=== PATIENT | female | born 1955 | race Caucasian/White ===

== ENCOUNTER 2021-05-04 13:03 | Outpatient (CLI) | payer OTHER | END 2021-05-04 13:04 | disposition home or self-care (01) | LOC: CSHMAMMO 13:03 | PROVIDERS: ATTEND Internal Medicine Hematology & Oncology | DX: Z12.31 Encounter for screening mammogram for malignant neoplasm of breast (principal); Z80.3 Family history of malignant neoplasm of breast; Z85.3 Personal history of malignant neoplasm of breast | CPT/HCPCS: 77063; 77067 ==

== ENCOUNTER 2023-01-09 13:03 | Outpatient (CLI) | payer MEDICARE, OTHER | END 2023-01-09 13:04 | disposition home or self-care (01) | LOC: CSHMAMMO 13:03 | PROVIDERS: ATTEND Specialist | DX: Z08 Encounter for follow-up examination after completed treatment for malignant neoplasm (principal); Z85.3 Personal history of malignant neoplasm of breast | CPT/HCPCS: 77066; G0279 ==

== ENCOUNTER 2024-02-22 14:51 | Outpatient (CLI) | payer MEDICARE, OTHER | END 2024-02-22 14:52 | disposition home or self-care (01) | LOC: CSHMAMMO 14:51 | PROVIDERS: ATTEND Family Medicine | DX: Z12.31 Encounter for screening mammogram for malignant neoplasm of breast (principal); Z80.3 Family history of malignant neoplasm of breast; Z85.3 Personal history of malignant neoplasm of breast; Z91.89 Other specified personal risk factors, not elsewhere classified; Z98.890 Other specified postprocedural states | CPT/HCPCS: 77063; 77067 ==

== ENCOUNTER 2024-03-11 13:11 | Outpatient (CLI) | payer MEDICARE, OTHER ==
[~2024-03-11 13:11] MED LIST: Magnevist 469MG/ML 20 ML VIAL ONE
== END 2024-03-11 13:12 | disposition home or self-care (01) ==
LOC: CSHMRI 13:11
PROVIDERS: ATTEND Allergy & Immunology
DX: G43.909 Migraine, unspecified, not intractable, without status migrainosus (principal); R93.0 Abnormal findings on diagnostic imaging of skull and head, not elsewhere classified
CPT/HCPCS: 36415; 70553; 76376; 82565

== ENCOUNTER 2025-03-06 12:47 | Outpatient (CLI) | payer MEDICARE, OTHER | END 2025-03-06 12:48 | disposition home or self-care (01) | LOC: CSHMAMMO 12:47 | PROVIDERS: ATTEND Internal Medicine Hematology & Oncology | DX: Z12.31 Encounter for screening mammogram for malignant neoplasm of breast (principal); Z80.3 Family history of malignant neoplasm of breast; Z85.3 Personal history of malignant neoplasm of breast; Z91.89 Other specified personal risk factors, not elsewhere classified; Z98.890 Other specified postprocedural states | CPT/HCPCS: 77063; 77067 ==